=== PATIENT | male | born 1965 | race Caucasian/White ===

== ENCOUNTER 2018-09-09 05:20 | Emergency (ER) | payer SELFPAY ==
[2018-09-09] MEDS ORDERED: IBUPROFEN 400 MG TAB ONE (05:56)
[2018-09-09] MEDS ORDERED: DEXAMETHASONE 4 MG/ML VIAL ONE (05:56)
[2018-09-09] MEDS ORDERED: LIDOCAINE VISCOUS 2% SOLN 15 ML UDC ONE (06:01)
--- NOTE | 2018-09-09 07:04 | ER ---
Nurse's Notes [facility] Name: Gray Fernandez Age: 53 yrs Sex: Male : 1965 Arrival Date: 09/09/2018 Time: 05:21 Bed 16 Private MD: Diagnosis: Pharyngitis Presentation: 09/09 05:30 Presenting complaint: Patient states: he started having throat pain last night and pain bb with swallowing pt also having a cough pt smokes 1/2 pack of cigarettes a day. Transition of care: patient was not received from another setting of care. Onset of symptoms was September 08, 2018. Risk Assessment: Do you want to hurt yourself or someone else? Patient reports no desire to harm self or others. Initial Sepsis Screen: Does the patient meet any 2 criteria? No. Patient's initial sepsis screen is negative. Does the patient have a suspected source of infection? No. Patient's initial sepsis screen is negative. Care prior to arrival: None. 05:30 Method Of Arrival: Ambulatory bb 05:30 Acuity: MADELINE 3 bb Historical: - Allergies: 05:33 No Known Allergies; bb - Home Meds: 05:33 Hydrocodone-Acetaminophen Oral [Active]; bb - PMHx: 05:33 Migraines; bb - PSHx: 05:33 Appendectomy; surgery right arm; bb - Immunization history:: Adult Immunizations unknown. - Social history:: Smoking status: Patient uses tobacco products, smokes one-half pack cigarettes per day. - Ebola Screening: : No symptoms or risks identified at this time. Screenin:25 Abuse screen: Denies threats or abuse. Denies injuries from another. Nutritional cc3 screening: No deficits noted. Tuberculosis screening: No symptoms or risk factors identified. Fall Risk Ambulatory Aid- None/Bed Rest/Nurse Assist (0 pts). Gait- Normal/Bed Rest/Wheelchair (0 pts) Mental Status- Oriented to own ability (0 pts). Assessment: 05:25 General: Appears in no apparent distress. comfortable, Behavior is calm, cooperative, cc3 appropriate for age, Smells of cigarette. Pain: Complains of pain in throat. Neuro: Level of Consciousness is awake, alert, obeys commands, Oriented to person, place, time, situation, Appropriate for age. Cardiovascular: Denies chest pain. Respiratory: Reports cough that is non-productive, persistent. GI: Abdomen is round non-distended. : No signs and/or symptoms were reported regarding the genitourinary system. EENT: Reports difficulty swallowing. Derm: No signs and/or symptoms reported regarding the dermatologic system. Musculoskeletal: Circulation, motion, and sensation intact. Range of motion: intact in all extremities. 06:36 Reassessment: Patient appears in no apparent distress at this time. Patient and/or cc3 family updated on plan of care and expected duration. Pain level reassessed. Patient is alert, oriented x 3, equal unlabored respirations, skin warm/dry/pink. 07:22 Reassessment: Patient appears in no apparent distress at this time. No changes from previously documented assessment. Patient and/or family updated on plan of care and expected duration. Pain level reassessed. Patient is alert, oriented x 3, equal unlabored respirations, skin warm/dry/pink. Patient states feeling better. Patient states symptoms have improved. Vital Signs: 05:33 BP 142 / 107; Pulse 92; Resp 16 S; Temp 99.1(O); Pulse Ox 97% on R/A; Weight 81.65 kg bb (R); Height 6 ft. 1 in. (185.42 cm) (R); Pain 6/10; 06:37 BP 133 / 89; Pulse 64; Resp 17 S; Pulse Ox 98% on R/A; Pain 4/10; cc3 07:22 BP 137 / 84; Pulse 76; Resp 15; Temp 98.3; Pulse Ox 99% on R/A; Pain 0/10; ch 05:33 Body Mass Index 23.75 (81.65 kg, 185.42 cm) ED Course: 05:21 Patient arrived in ED. am2 05:25 Patient has correct armband on for positive identification. Bed in low position. Call cc3 light in reach. Side rails up X 1. Pulse ox on. NIBP on. 05:27 Cynthia Raymond is Primary Nurse. cc3 05:31 Triage completed. bb 05:32 Gerald Leahy MD is Attending Physician. ps1 05:33 Arm band placed on Patient placed in an exam room, on a stretcher, on pulse oximetry. bb 06:56 Report given to YRN Leach. cc3 07:22 No apparent distress. Resting quietly. ch 07:22 No provider procedures requiring assistance completed. Patient did not have IV access during this emergency room visit. Administered Medications: 05:45 Drug: Motrin 800 mg Route: PO; cc3 06:26 Follow up: Response: No adverse reaction; Pain is decreased cc3 05:50 Drug: Decadron - Dexamethasone 10 mg Route: IVP; Site: Other; cc3 06:26 Follow up: Response: No adverse reaction cc3 06:00 Drug: Viscous Lidocaine Liquid (4 %) 5 ml Route: Mucous Membrane; cc3 06:26 Follow up: Response: No adverse reaction cc3 Outcome: 07:03 [facility]22 Discharged to home ambulatory, with family. 07:22 Condition: improved 07:22 Discharge instructions given to patient, family, Instructed on discharge instructions, follow up and referral plans. medication usage, Demonstrated understanding of instructions, follow-up care, medications, Prescriptions given X 3. 07:23 Patient left the ED. Signatures: Sadie Coronado RN YRN Yuly Armstrong RN RN Ashley Saini am2 Gerald Leahy MD MD ps1 Cynthia Raymond cc3
[2018-09-09 07:32] VITALS: BP 137/84; TEMP 98.3; O2SAT 99
--- NOTE | 2018-09-15 19:13 | EDPHYS ---
Physician Documentation [facility] Name: Gray Fernandez Age: 53 yrs Sex: Male : 1965 Arrival Date: 09/09/2018 Time: 05:21 Bed 16 Private MD: ED Physician Gerald Leahy Historical: - Allergies: 09/09 05:33 No Known Allergies; bb - Home Meds: 05:33 Hydrocodone-Acetaminophen Oral [Active]; bb - PMHx: 05:33 Migraines; bb - PSHx: 05:33 Appendectomy; surgery right arm; bb - Immunization history:: Adult Immunizations unknown. - Social history:: Smoking status: Patient uses tobacco products, smokes one-half pack cigarettes per day. - Ebola Screening: : No symptoms or risks identified at this time. Vital Signs: 05:33 BP 142 / 107; Pulse 92; Resp 16 S; Temp 99.1(O); Pulse Ox 97% on R/A; Weight 81.65 kg bb (R); Height 6 ft. 1 in. (185.42 cm) (R); Pain 6/10; 06:37 BP 133 / 89; Pulse 64; Resp 17 S; Pulse Ox 98% on R/A; Pain 4/10; cc3 07:22 BP 137 / 84; Pulse 76; Resp 15; Temp 98.3; Pulse Ox 99% on R/A; Pain 0/10; ch 05:33 Body Mass Index 23.75 (81.65 kg, 185.42 cm) bb MDM: 05:33 Patient medically screened. ps1 09/09 05:33 Order name: Flu; Complete Time: 07:02 ps1 09/09 05:33 Order name: Strep; Complete Time: 07:02 ps1 09/09 06:33 Order name: Throat Culture; Complete Time: 19:08 EDMS Administered Medications: 05:45 Drug: Motrin 800 mg Route: PO; cc3 06:26 Follow up: Response: No adverse reaction; Pain is decreased cc3 05:50 Drug: Decadron - Dexamethasone 10 mg Route: IVP; Site: Other; cc3 06:26 Follow up: Response: No adverse reaction cc3 06:00 Drug: Viscous Lidocaine Liquid (4 %) 5 ml Route: Mucous Membrane; cc3 06:26 Follow up: Response: No adverse reaction cc3 Disposition: 09/09/18 07:03 Discharged to Home. Impression: Pharyngitis. - Condition is Stable. - Discharge Instructions: Pharyngitis. - Prescriptions for Cepacol Sorethroat- Cough - take 1 lozenge by ORAL route every 3-4 hours for 5 days; 60 lozenge. Anaprox DS 550 mg Oral Tablet - take 1 tablet by ORAL route every 12 hours As needed; 20 tablet. Medrol (Jose) 4 mg Oral Tablets, Dose Pack - take 1 tablet by ORAL route as directed - follow package instructions; 1 packet. - Work release form, Medication Reconciliation Form, Thank You Letter, Antibiotic Education, Prescription Opioid Use form. - Follow up: Private Physician; When: As needed; Reason: Recheck today's complaints, Continuance of care, Re-evaluation by your physician. Follow up: Emergency Department; When: As needed; Reason: Fever > 102 F, Trouble breathing, Worsening of condition. - Problem is new. - Symptoms have improved. Addendum: 09/15/2018 19:08 Addendum: 53y/o M presenting with sore throat. Patient states onset was yesterday. p s1 Patient is a smoker. He has tried home medicaitons without remission. States it hurts to swallow. Pain rated moderate and worse with swallowing. ROS: No fever ,chills, N,V,D, dysuria, rash, edema, + Pharyngitis. PHYS: NCAT, PEERL, oropharynx pink, posterior pillars mildly erythematous, no PROTOCOL OFFICER. Uvula midline, no hydrops, tolerating secretions. No exudate. Neck supple. CTAB, RRR, Abd SNT +BS, No CCE. No rash. POC: Flu and strep swab, decadron, motrin. Stable for discharge. Follow up with PCP for further diagnostic testing if symptoms persist over a week. Salt water gargle. OTC benzocaine. . Signatures: Dispatcher [employer] Sadie Melendez, RN RN Yuly Castrejon RN RN Gerald Garcia MD MD ps1 Cordel, Charlene cc3 Corrections: (The following items were deleted from the chart) 09/09 07:23 07:03 09/09/2018 07:03 Discharged to Home. Impression: Pharyngitis. Condition is ch Stable. Forms are Medication Reconciliation Form, Thank You Letter, Antibiotic Education, Prescription Opioid Use. Follow up: Private Physician; When: As needed; Reason: Recheck today's complaints, Continuance of care, Re-evaluation by your physician. Follow up: Emergency Department; When: As needed; Reason: Fever > 102 F, Trouble breathing, Worsening of condition. Problem is new. Symptoms have improved. ps1
== END 2018-09-09 07:23 | disposition home or self-care (01) ==
LOC: ER 05:20
DX: J02.9 Acute pharyngitis, unspecified (principal); F17.210 Nicotine dependence, cigarettes, uncomplicated; Z88.5 Allergy status to narcotic agent
CPT/HCPCS: 87070; 87081; 87804; 96374; 99283